=== PATIENT | male | born 1990 | race Two or more races ===

== ENCOUNTER 2021-07-22 11:17 | Emergency (ER) | payer OTHER ==
[~2021-07-22] VITALS: Ht 177.8 cm; Wt 72.7 kg
[2021-07-22 11:33] VITALS: BP 123/53
== END 2021-07-22 12:55 ==
LOC: EMS 11:36
DX: Z71.1 Person with feared health complaint in whom no diagnosis is made (principal); Z03.89 Encounter for observation for other suspected diseases and conditions ruled out
CPT/HCPCS: 99283; Z7502

== ENCOUNTER 2021-07-22 15:21 | Inpatient (IN) | payer OTHER ==
[~2021-07-22] VITALS: Ht 177.8 cm; Wt 72.6 kg
[2021-07-22 16:33] LABS: COVID AG,FIA SOURCE NASOPHARYNGEAL
[2021-07-22 17:36] LABS: BASOPHILS % (AUTO) 1.1 % (0.0-2.0); EOSINOPHILS % (AUTO) 2.3 % (1.0-6.0); HEMATOCRIT 43.6 % (41-53); HEMOGLOBIN 14.6 g/dL (13.5-17.5); LYMPHOCYTES # (AUTO) 2.3 K/uL (1.0-4.8); LYMPHOCYTES % (AUTO) 29.8 % (22.0-44.0); MEAN CORPUSCULAR HEMOGLOBIN 29.8 pg (26.0-34.0); MEAN CORPUSCULAR HGB CONC 33.5 G/dL (31.0-37.0); MEAN CORPUSCULAR VOLUME 89 fL (80-100); MONOCYTES # (AUTO) 0.5 K/uL (0.1-1.0); MONOCYTES % (AUTO) 6.4 % (2.0-9.0); NEUTROPHILS # (AUTO) 4.8 K/uL (1.8-7.7); NEUTROPHILS % (AUTO) 60.4 % (40.0-70.0); PLATELET COUNT (AUTO) 247 K/uL (150-450); RED BLOOD CELL COUNT(AUTO) 4.92 MIL/uL (4.50-5.90); RED CELL DISTRIBUTION WIDTH 12.9 % (11.5-14.5)
[2021-07-22 17:52] LABS: ANION GAP 7 mmol/L (8-16); CALCIUM, TOTAL 8.8 mg/dL (8.8-10.5); CARBON DIOXIDE 32 mmol/L (22-29); CHLORIDE 105 mmol/L (98-107); CREATININE 0.93 mg/dL (0.60-1.30); GLOMERULAR FILTR. RATE CALC > 60 mL/min (>60); GLUCOSE,RANDOM 112 mg/dL (70-110); POTASSIUM 4.4 mmol/L (3.5-5.1); SODIUM SERUM 144 mmol/L (136-145); UREA NITROGEN, BLOOD 19 mg/dL (7-18)
[2021-07-22 17:57] LABS: ALANINE AMINOTRANSFERASE 28 U/L (12-78); ALBUMIN 3.8 g/dL (3.4-5.0); ALKALINE PHOSPHATASE 78 U/L (46-116); ASPARTATE AMINOTRANSFERASE 18 U/L (15-37); BILIRUBIN,TOTAL 0.4 mg/dL (0.1-1.0); TOTAL PROTEIN, SERUM 7.1 g/dL (6.4-8.2)
[2021-07-22] MEDS ORDERED: ACETAMINOPHEN 325 MG TABLET PO PRN ×2 (18:00→18:45)
[2021-07-22] MEDS ORDERED: ONDANSETRON HCL 4 MG/2 ML VIAL IVP PRN ×2 (18:00→18:45)
[2021-07-22] MEDS ORDERED: 0.9% SODIUM CHLORIDE 10 ML SYRINGE IVP PRN (18:00)
[2021-07-22] MEDS ORDERED: IPRATROPIUM BROMIDE 0.5 MG/2.5 ML NEB SOLUTION NEB PRN (18:45)
[2021-07-22] MEDS ORDERED: BISACODYL 10 MG RECTAL RECTAL SUPPOSITORY PR PRN (18:45)
[2021-07-22] MEDS ORDERED: MAGNESIUM HYDROXIDE SUSPENSION 30 ML UDCUP PO PRN (18:45)
[2021-07-22] MEDS ORDERED: ALBUTEROL SULFATE 2.5 MG/0.5 ML NEB SOLUTION NEB PRN (18:45)
[2021-07-22 20:20] VITALS: BP 107/64
[2021-07-22 20:52] LABS: AMPHET/METH SCREEN,URINE POSITIVE (NEGATIVE); BARBITURATE SCREEN, URINE NEGATIVE (NEGATIVE); BENZODIAZEPINES SCREEN,URINE NEGATIVE (NEGATIVE); CANNABINOID SCREEN,URINE POSITIVE (NEGATIVE); COCAINE SCREEN,URINE NEGATIVE (NEGATIVE); METHADONE SCREEN, URINE NEGATIVE (NEGATIVE); OPIATE SCREEN,URINE NEGATIVE (NEGATIVE)
[2021-07-22] MEDS: ZOLPIDEM TARTRATE 5 MG TABLET PO PRN (20:55)
[2021-07-22 20:56] LABS: PHENCYCLIDINE SCREEN,URINE NEGATIVE (NEGATIVE)
[2021-07-23 08:08] VITALS: BP 104/60
[2021-07-23] MEDS: SERTRALINE HCL 50 MG TABLET PO SCH (11:32)
[2021-07-23] MEDS: TraZODone HCL 50 MG TABLET PO SCH (19:54)
[2021-07-23 20:13] VITALS: BP 118/63
[2021-07-24 05:22] VITALS: BP 108/61
[2021-07-24 07:31] VITALS: BP 108/60
[2021-07-24] MEDS: SERTRALINE HCL 50 MG TABLET PO SCH (09:03)
[2021-07-24] MEDS: ZOLPIDEM TARTRATE 5 MG TABLET PO PRN (19:56)
[2021-07-24] MEDS: TraZODone HCL 50 MG TABLET PO SCH (19:58)
[2021-07-24 20:32] VITALS: BP 111/56
[2021-07-25 06:02] VITALS: BP 100/51
[2021-07-25 07:37] VITALS: BP 97/58
[2021-07-25] MEDS: SERTRALINE HCL 50 MG TABLET PO SCH (08:11)
[2021-07-25 15:39] VITALS: BP 104/59
[2021-07-25 20:13] VITALS: BP 103/66
[2021-07-25] MEDS: ZOLPIDEM TARTRATE 5 MG TABLET PO PRN (20:18)
[2021-07-25] MEDS: TraZODone HCL 50 MG TABLET PO SCH (20:21)
[2021-07-26 05:17] VITALS: BP 96/49
[2021-07-26] MEDS: SERTRALINE HCL 50 MG TABLET PO SCH (07:50)
[2021-07-26 08:07] VITALS: BP 102/77
[2021-07-26] MEDS ORDERED: SERT-158 PO (11:37)
== END 2021-07-26 13:33 | DRG 885 ==
LOC: EMS 15:25 → 6S 18:58
PROVIDERS: ADMIT Hospitalist; ATTEND Hospitalist
DX: F33.2 Major depressive disorder, recurrent severe without psychotic features (principal); R45.851 Suicidal ideations; F15.90 Other stimulant use, unspecified, uncomplicated; F41.9 Anxiety disorder, unspecified; Z20.822 Contact with and (suspected) exposure to COVID-19; Z91.19 Patient's noncompliance with other medical treatment and regimen
CPT/HCPCS: 80053; 85025; 99285; G0480